=== PATIENT | female | born 1935 | race Caucasian/White ===

== ENCOUNTER 2021-03-23 22:07 | Inpatient (IN) ==
[2021-03-23] MEDS ORDERED: Naloxone 0.4 MG/ML INJ IVP PRN (23:01)
[2021-03-23] MEDS ORDERED: Ondansetron 4 MG/2 ML VIAL IVP PRN (23:01)
[2021-03-23] MEDS ORDERED: Acetaminophen 325 MG TABLET PO PRN (23:01)
[2021-03-23] MEDS ORDERED: D5% in Water 1,000 ML IVC PRN (23:04)
[2021-03-23] MEDS ORDERED: *HR* Dextrose 50 % in Water (Syg) 50 ML SYRINGE IVP PRN (23:04)
[2021-03-23] MEDS ORDERED: Dextrose Gel 15 GM/37.5 ML TUBE PO PRN ×2 (23:04)
[2021-03-23] MEDS ORDERED: 0.9 % Sodium Chloride 1,000 ML IVC SCH (23:15)
[2021-03-23] MEDS ORDERED: Insulin LISPRO 300 UNITS/3 ML VIAL SUBQ SCH (23:15)
[2021-03-24 05:12] LABS: Basophils % 0.4 %; Eosinophils # 0.1 K/mcL (0.0-0.6); Eosinophils % 1.7 %; Hematocrit 35.9 % (35.3-44.9); Hemoglobin 11.4 g/dL (11.5-15.4); Immature Granulocytes % 0.1 % (0-4); Lymphocytes # 2.6 K/mcL (0.6-4.6); Lymphocytes % 34.4 %; Mean Corpuscular HGB Conc 31.8 g/dL (31.6-35.5); Mean Corpuscular Hemoglobin 30.1 pg (28.0-33.3); Mean Corpuscular Volume 94.7 fL (83.0-100.0); Mean Platelet Volume 9.5 fL (9.4-12.4); Monocytes # 1.1 K/mcL (0.0-1.3); Monocytes % 14.8 %; Neutrophils # 3.6 K/mcL (1.6-8.9); Platelet Count 203 K/mcL (140-400); Red Blood Count 3.79 M/mcL (3.82-4.97); Red Cell Distribution Width 12.5 % (11.5-14.5); Segmented Neutrophils % 48.6 %; White Blood Count 7.4 K/mcL (4.3-11.1)
[2021-03-24 05:32] LABS: BUN/Creatinine Ratio 12 (6-26); Blood Urea Nitrogen 12 mg/dL (8-23); Calcium 9.2 mg/dL (8.6-10.3); Carbon Dioxide 25 mEq/L (23-29); Chloride 108 mEq/L (98-107); Glucose 115 mg/dL (70-105); Magnesium 1.9 mg/dL (1.6-2.6); Osmolality,Calculated 291 (280-300); Potassium 3.7 mEq/L (3.5-5.1); Sodium 140 mEq/L (136-145); eGFR For African Americans > 60 (> 60); eGFR For Non-African Americans 51 (> 60)
[2021-03-24 05:43] LABS: Estimated Average Glucose 146 mg/dl; Hemoglobin A1C 6.7 %
[2021-03-24] MEDS ORDERED: *HR* Propofol 200 MG/20 ML VIAL IVP ONE (07:16)
[2021-03-24] MEDS ORDERED: *HR* FentaNYL (PF) 100 MCG/2 ML VIAL ONE (07:16)
[2021-03-24] MEDS ORDERED: Lidocaine -MPF 2% 2 ML VIAL ONE (07:35)
[2021-03-24] MEDS ORDERED: Ondansetron 4 MG/2 ML VIAL ONE (07:35)
[2021-03-24] MEDS ORDERED: Ropivacaine/PF 0.5% 30 ML VIAL ONE (07:54)
[2021-03-24] MEDS ORDERED: Lidocaine/EPI 1:100k 1% 20 ML VIAL ONE (08:04)
[2021-03-24] MEDS ORDERED: *HR* OxyCODONE Immed Rel 5 MG TABLET PO PRN ×2 (08:24→10:39)
[2021-03-24] MEDS ORDERED: Acetaminophen IV 1,000 MG/100 ML BAG IVPB PRN ×2 (08:24→10:39)
[2021-03-24] MEDS ORDERED: *HR* HYDROmorphone PF 0.5 MG/0.5 ML SYRINGE IVP PRN ×2 (08:24→10:39)
[2021-03-24] MEDS ORDERED: Ondansetron 4 MG/2 ML VIAL IVP PRN ×3 (08:24→10:39)
[2021-03-24] MEDS ORDERED: *HR* Metoprolol 5 MG/5 ML VIAL IVP ONE (08:58)
[2021-03-24] MEDS ORDERED: Ketorolac 30 MG/ML VIAL ONE (09:12)
[2021-03-24] MEDS ORDERED: Acetaminophen IV 1,000 MG/100 ML BAG IVPB ONE (09:20)
[2021-03-24] MEDS ORDERED: EPHEDrine 50 MG/ML VIAL ONE (10:30)
[2021-03-24] MEDS ORDERED: D5% in Water 1,000 ML IVC PRN (10:39)
[2021-03-24] MEDS ORDERED: 0.9 % Sodium Chloride 1,000 ML IVC SCH (10:39)
[2021-03-24] MEDS ORDERED: *HR* Dextrose 50 % in Water (Syg) 50 ML SYRINGE IVP PRN (10:39)
[2021-03-24] MEDS ORDERED: Dextrose Gel 15 GM/37.5 ML TUBE PO PRN ×2 (10:39)
[2021-03-24] MEDS ORDERED: CeFAZolin 2,000 MG/120 ML BAG IVPB SCH (11:00)
[2021-03-24 11:34] LABS: Bilirubin,Urine Negative (Negative); Blood,Urine Negative (Negative); Clarity,Urine Clear (Clear); Color,Urine Colorless (Yellow); Glucose,Urine (UA) Normal (Normal); Ketones,Urine Negative (Negative); Leukocyte Esterase,Urine Negative (Negative); Nitrite,Urine Negative (Negative); Protein,Urine Negative (Neg-Trace); Specific Gravity,Urine 1.008 (1.010-1.025); Urobilinogen,Urine Normal (Normal)
[2021-03-24] MEDS: Insulin LISPRO 300 UNITS/3 ML VIAL SUBQ SCH ×2 (12:25→17:51)
[2021-03-24] MEDS: CeFAZolin 2,000 MG/120 ML BAG IVPB SCH ×2 (16:51→23:10)
[2021-03-24] MEDS ORDERED: Acetaminophen 325 MG TABLET PO PRN (17:00)
[2021-03-25 06:27] VITALS: BP 162/61; PULSE 97; TEMP 98.2; O2SAT 98
[2021-03-25] MEDS ORDERED: Folic Acid 1 MG TABLET PO SCH (09:00)
[2021-03-25] MEDS ORDERED: DilTIAZem CD (24hr) 180 MG CAP.ER.24H PO SCH (09:00)
[2021-03-25] MEDS ORDERED: atenoloL 25 MG TABLET PO SCH (09:00)
[2021-03-25] MEDS: Insulin LISPRO 300 UNITS/3 ML VIAL SUBQ SCH (10:25)
[2021-03-25] MEDS ORDERED: atenoloL 50 MG TABLET PO SCH (10:30)
== END 2021-03-25 11:24 | disposition home or self-care (01) | DRG 512 ==
LOC: 4WAOSI → SUATTDRO 22:42
PROVIDERS: ADMIT Student in an Organized Health Care Education/Training Program; ATTEND Family Medicine